=== PATIENT | male | born 2005 | race Caucasian/White ===

== ENCOUNTER 2024-02-28 22:36 | Emergency (ER) | payer OTHER ==
[2024-02-28] MEDS ORDERED: ALBUTEROL SO4 0.083% IH SOL 2.5 MG/3 ML VIAL.NEB. NEB ONE (22:42)
[2024-02-28 22:45] VITALS: BP 144/79; TEMP 98.5; BMI 25.8
[2024-02-28 23:39] VITALS: PULSE 96
[2024-02-28 23:52] VITALS: RESP 18
[2024-02-29] MEDS: diphenhydrAMINE HCL 25 MG CAPSULE (FP) PO ONE (00:49)
[2024-02-29] MEDS: ALBUTEROL SO4 HFA INHALER IH ONE (00:49)
[2024-02-29] MEDS ORDERED: diphenhydrAMINE HCL 25 MG CAPSULE (FP) PO ONE (00:50)
[2024-02-29] MEDS ORDERED: ALBUTEROL SO4 HFA INHALER IH ONE (00:50)
== END 2024-02-29 01:23 | disposition home or self-care (01) ==
LOC: JER 22:36
PROC: 3E0F7GC Introduction of Other Therapeutic Substance into Respiratory Tract, Via Natural or Artificial Opening (ICD-10-PCS; principal; 2024-02-29)
DX: R05.9 Cough, unspecified (principal); R09.82 Postnasal drip; J30.9 Allergic rhinitis, unspecified; J98.01 Acute bronchospasm; Z20.822 Contact with and (suspected) exposure to COVID-19
CPT/HCPCS: 0241U-QW; 99283-25